=== PATIENT | male | born 1980 | race Caucasian/White ===

== ENCOUNTER 2019-09-04 12:47 | Inpatient (IN) | payer BC, SELFPAY ==
[~2019-09-04] VITALS: Ht 175.3 cm; Wt 84.8 kg
[2019-09-04 13:26] VITALS: BP_SYST 105
[2019-09-04] MEDS ORDERED: VANCOMYCIN HCL 1,000 MG in NS 250 ML IV ONE (14:30)
[2019-09-04] MEDS ORDERED: PIPERACILLIN/TAZO 3.375 GM in NS 50 ML IV ONE (14:30)
[2019-09-04 14:32] LABS: BASOPHILS % (AUTO) 0.4 % (0.0-2.0); HEMOGLOBIN 15.6 g/dL (14.0-18.0); LYMPHOCYTES # (AUTO) 0.7 K/uL (1.0-5.5); LYMPHOCYTES % (AUTO) 11.4 % (20.5-51.5); MEAN CORPUSCULAR HEMOGLOBIN 30 pg (27-31); MEAN CORPUSCULAR HGB CONC 34 % (32-36); MEAN CORPUSCULAR VOLUME 88 fL (79.0-98.0); MONOCYTES # (AUTO) 0.4 K/uL (0.0-1.0); MONOCYTES % (AUTO) 6.7 % (1.7-9.3); NEUTROPHILS # (AUTO) 4.9 K/uL (1.8-7.7); NEUTROPHILS % (AUTO) 81.5 % (40.0-70.0); PLATELET COUNT (AUTO) 231 K/uL (130-430); RED CELL DISTRIBUTION WIDTH 11.9 % (9.0-15.0)
[2019-09-04 14:42] LABS: CALCIUM 8.4 mg/dL (8.4-11.0); CREATININE 1.01 mg/dL (0.55-1.30); POTASSIUM 3.9 mmol/L (3.5-5.1)
[2019-09-04 14:46] LABS: ALBUMIN 3.1 g/dL (3.4-4.8); TOTAL BILIRUBIN 0.5 mg/dL (0.0-1.0)
[2019-09-04 14:55] LABS: PROTHROMBIN TIME 10.2 SECS (9.5-12.5)
[2019-09-04 15:18] LABS: C-REACTIVE PROTEIN QUANT 17.4 mg/dL (0-0.5)
[2019-09-04] MEDS ORDERED: PIPERACILLIN/TAZOBACTAM 3.375 GM/VIAL (ZOSYN) IV ONE (16:10)
[2019-09-04] MEDS ORDERED: VANCOMYCIN HCL 1000 MG/VIAL IV ONE (16:10)
[2019-09-04 19:58] LABS: BILIRUBIN,URINE NEGATIVE (NEGATIVE); BLOOD, URINE NEGATIVE (NEGATIVE); CLARITY/URINE CLEAR (CLEAR); COLOR,URINE YELLOW (YELLOW); GLUCOSE,URINE NEGATIVE (NEGATIVE); KETONES,URINE 1+ (NEGATIVE); LEUKOCYTE ESTERASE ,URINE NEGATIVE (NEGATIVE); NITRITE, URINE NEGATIVE (NEGATIVE); PROTEIN URINE 2+ (NEGATIVE); UROBILINOGEN,URINE 0.2 (0.2-1.0)
[2019-09-04 20:09] LABS: RBC,URINE NONE SEEN /HPF (0-3)
[2019-09-04 20:10] LABS: BACTERIA,URINE None Seen /HPF (None Seen); MUCUS,URINE None Seen /LPF (None Seen); WBC,URINE 0-3 /HPF (0-3)
[2019-09-04] MEDS ORDERED: ALBUTEROL MDI INHALATION 8 GM INH INH PRN (20:45)
[2019-09-04] MEDS ORDERED: ACETAMINOPHEN 500 MG TABLET PO PRN (20:45)
[2019-09-04] MEDS ORDERED: DOCUSATE SODIUM 100 MG/10 ML UDC PO PRN (20:45)
[2019-09-04] MEDS ORDERED: ZOLPIDEM TARTRATE 5 MG TABLET PO PRN (20:45)
[2019-09-04] MEDS ORDERED: ONDANSETRON HCL 4 MG/2 ML VIAL IVP PRN (20:45)
[2019-09-04] MEDS ORDERED: HYDROcodone/ACETAMIN 7.5-325 MG TAB PO PRN (20:45)
[2019-09-04] MEDS: HEPARIN SODIUM,PORCINE 5000 UNITS/ML VIAL SUBCUT SCH (21:00)
[2019-09-04] MEDS: NACL 0.9% 1,000 ML IV SCH (21:01)
[2019-09-04] MEDS ORDERED: DEXAMETHASONE SOD PHOSPHATE 4 MG/ML VIAL IVP SCH (22:00)
[2019-09-04 22:30] LABS: BARBITURATE, URINE NEGATIVE (NEG <=200); BENZODIAZEPINE, URINE NEGATIVE (NEG <=150); CANNABINOID, URINE NEGATIVE (NEG <=50); COCAINE, URINE NEGATIVE (NEG <=150); METHAMPHETAMINES SCREEN,URINE NEGATIVE (NEG <=500); OPIATE, URINE NEGATIVE (NEG <=100); PHENCYCLIDINE SCREEN,URINE NEGATIVE (NEG <=25); UR TRICYCLIC ANTIDEPRESSANTS NEGATIVE (NEG <=300); URINE AMPHETAMINE NEGATIVE (NEG <=500); URINE METHADONE NEGATIVE (NEG <=200); URINE OXYCODONE SCREEN NEGATIVE (NEG <=100); URINE PROPOXYPHENE SCREEN NEGATIVE (NEG <=300)
[2019-09-04 22:37] LABS: FREE T4 (FREE THYROXINE) 0.8 ng/dL (0.6-1.6); PHOSPHORUS 2.6 mg/dL (2.7-4.5); THYROID STIMULATING HORMONE 0.45 uIu/mL (0.34-4.82)
[2019-09-05 06:45] LABS: BASOPHILS % (AUTO) 0.5 % (0.0-2.0); EOSINOPHILS % (AUTO) 0.3 % (0.0-4.0); LYMPHOCYTES # (AUTO) 1.6 K/uL (1.0-5.5); LYMPHOCYTES % (AUTO) 36.3 % (20.5-51.5); MEAN CORPUSCULAR HEMOGLOBIN 30 pg (27-31); MEAN CORPUSCULAR HGB CONC 34 % (32-36); MEAN CORPUSCULAR VOLUME 89 fL (79.0-98.0); MONOCYTES # (AUTO) 0.4 K/uL (0.0-1.0); NEUTROPHILS # (AUTO) 2.3 K/uL (1.8-7.7); NEUTROPHILS % (AUTO) 52.9 % (40.0-70.0); PLATELET COUNT (AUTO) 214 K/uL (130-430); RED BLOOD CELL COUNT(AUTO) 4.63 MIL/uL (4.2-6.2); WHITE BLOOD COUNT (AUTO) 4.3 K/uL (4.8-10.8)
[2019-09-05 07:41] LABS: ALBUMIN 2.4 g/dL (3.4-4.8); CALCIUM 7.8 mg/dL (8.4-11.0); CREATININE 0.87 mg/dL (0.55-1.30); POTASSIUM 4.1 mmol/L (3.5-5.1); TOTAL BILIRUBIN 0.5 mg/dL (0.0-1.0)
[2019-09-05] MEDS ORDERED: ALBUTEROL SULFATE 0.083% 2.5 MG/3 ML VIAL.NEB INH PRN (08:15)
[2019-09-05 08:48] LABS: ERYTHROCYTE SEDIMENTATION RATE 38 MM/HR (0-15)
[2019-09-05] MEDS ORDERED: AZITHROMYCIN 500 MG in NS 250 ML IV SCH (09:00)
[2019-09-05] MEDS ORDERED: cefTRIAXone 1 GM in D5W 50 ML IV SCH (09:00)
[2019-09-05] MEDS: cefTRIAXone 1 GM in D5W 50 ML IV SCH (09:49)
[2019-09-05] MEDS: DECADRON 4 MG TABLET PO SCH (10:48)
[2019-09-05] MEDS: ASCORBIC ACID 500 MG TABLET PO SCH (10:48)
[2019-09-05] MEDS: AZITHROMYCIN 250 MG TABLET PO SCH (10:50)
[2019-09-05] MEDS: PANTOPRAZOLE SODIUM 40 MG TAB PO SCH (10:51)
[2019-09-05] MEDS: HEPARIN SODIUM,PORCINE 5000 UNITS/ML VIAL SUBCUT SCH ×2 (11:20→20:59)
[2019-09-05 11:33] LABS: C-REACTIVE PROTEIN QUANT 16.6 mg/dL (0-0.5)
[2019-09-05] MEDS: NACL 0.9% 1,000 ML IV SCH ×2 (13:06→21:07)
[2019-09-05 14:49] VITALS: BP_SYST 114
[2019-09-06] VITALS: BP_SYST 150
[2019-09-06 01:29] VITALS: BP_SYST 123
[2019-09-06] MEDS: ASCORBIC ACID 500 MG TABLET PO SCH (08:51)
[2019-09-06] MEDS: AZITHROMYCIN 250 MG TABLET PO SCH (08:51)
[2019-09-06] MEDS: DECADRON 4 MG TABLET PO SCH (08:51)
[2019-09-06] MEDS: PANTOPRAZOLE SODIUM 40 MG TAB PO SCH (08:51)
[2019-09-06] MEDS: NACL 0.9% 1,000 ML IV SCH ×2 (08:51→22:29)
[2019-09-06 08:52] VITALS: BP_SYST 127
[2019-09-06] MEDS: ENOXAPARIN SODIUM 80 MG/0.8 ML SYRINGE SUBCUT SCH (09:00)
[2019-09-06] MEDS: cefTRIAXone 1 GM in D5W 50 ML IV SCH (09:55)
[2019-09-06 11:08] LABS: BASOPHILS % (AUTO) 0.5 % (0.0-2.0); HEMATOCRIT 43.7 % (36-54); LYMPHOCYTES # (AUTO) 0.7 K/uL (1.0-5.5); LYMPHOCYTES % (AUTO) 15.6 % (20.5-51.5); MEAN CORPUSCULAR HEMOGLOBIN 30 pg (27-31); MEAN CORPUSCULAR HGB CONC 34 % (32-36); MEAN CORPUSCULAR VOLUME 89 fL (79.0-98.0); MONOCYTES # (AUTO) 0.4 K/uL (0.0-1.0); MONOCYTES % (AUTO) 9.6 % (1.7-9.3); NEUTROPHILS # (AUTO) 3.3 K/uL (1.8-7.7); NEUTROPHILS % (AUTO) 74.3 % (40.0-70.0); PLATELET COUNT (AUTO) 288 K/uL (130-430); RED BLOOD CELL COUNT(AUTO) 4.93 MIL/uL (4.2-6.2); RED CELL DISTRIBUTION WIDTH 12.1 % (9.0-15.0); WHITE BLOOD COUNT (AUTO) 4.4 K/uL (4.8-10.8)
[2019-09-06 11:25] LABS: ALBUMIN 2.6 g/dL (3.4-4.8); CALCIUM 8.5 mg/dL (8.4-11.0); CREATININE 0.78 mg/dL (0.55-1.30); POTASSIUM 3.6 mmol/L (3.5-5.1); TOTAL BILIRUBIN 0.3 mg/dL (0.0-1.0)
[2019-09-06 11:38] LABS: C-REACTIVE PROTEIN QUANT 14.2 mg/dL (0-0.5)
[2019-09-06 11:54] LABS: ERYTHROCYTE SEDIMENTATION RATE 34 MM/HR (0-15)
[2019-09-06 12:39] VITALS: BP_SYST 121
[2019-09-06 16:20] VITALS: BP_SYST 129
[2019-09-06 20:00] VITALS: BP_SYST 135
[2019-09-07 00:01] VITALS: BP_SYST 134
[2019-09-07 07:39] VITALS: BP_SYST 120
[2019-09-07] MEDS ORDERED: APIX2.5T PO (07:41)
[2019-09-07] MEDS ORDERED: VITD2000 PO (07:41)
[2019-09-07] MEDS ORDERED: DEXA6TAB5 PO (07:41)
[2019-09-07] MEDS ORDERED: AZIT250T PO (07:41)
[2019-09-07] MEDS ORDERED: ASCO500C18 PO (07:41)
[2019-09-07] MEDS ORDERED: ZINC220T4 PO (07:41)
[2019-09-07] MEDS: cefTRIAXone 1 GM in D5W 50 ML IV SCH (08:12)
[2019-09-07] MEDS: PANTOPRAZOLE SODIUM 40 MG TAB PO SCH (08:12)
[2019-09-07] MEDS: DECADRON 4 MG TABLET PO SCH (08:12)
[2019-09-07] MEDS: ASCORBIC ACID 500 MG TABLET PO SCH (08:12)
[2019-09-07 08:13] VITALS: BP_SYST 133
[2019-09-07] MEDS: ENOXAPARIN SODIUM 80 MG/0.8 ML SYRINGE SUBCUT SCH (08:13)
[2019-09-07] MEDS: AZITHROMYCIN 250 MG TABLET PO SCH (08:13)
[2019-09-07] MEDS: NACL 0.9% 1,000 ML IV SCH ×2 (08:13→21:05)
[2019-09-07 10:24] LABS: BASOPHILS % (AUTO) 0.2 % (0.0-2.0); HEMATOCRIT 45.3 % (36-54); HEMOGLOBIN 15.5 g/dL (14.0-18.0); LYMPHOCYTES # (AUTO) 1.2 K/uL (1.0-5.5); LYMPHOCYTES % (AUTO) 14.6 % (20.5-51.5); MEAN CORPUSCULAR HEMOGLOBIN 30 pg (27-31); MEAN CORPUSCULAR HGB CONC 34 % (32-36); MEAN CORPUSCULAR VOLUME 88 fL (79.0-98.0); MONOCYTES # (AUTO) 0.7 K/uL (0.0-1.0); MONOCYTES % (AUTO) 8.1 % (1.7-9.3); NEUTROPHILS # (AUTO) 6.5 K/uL (1.8-7.7); NEUTROPHILS % (AUTO) 77.1 % (40.0-70.0); PLATELET COUNT (AUTO) 358 K/uL (130-430); RED BLOOD CELL COUNT(AUTO) 5.13 MIL/uL (4.2-6.2); RED CELL DISTRIBUTION WIDTH 12.1 % (9.0-15.0); WHITE BLOOD COUNT (AUTO) 8.4 K/uL (4.8-10.8)
[2019-09-07 10:39] LABS: ALBUMIN 2.6 g/dL (3.4-4.8); C-REACTIVE PROTEIN QUANT 5.5 mg/dL (0-0.5); CALCIUM 8.3 mg/dL (8.4-11.0); CREATININE 0.79 mg/dL (0.55-1.30); POTASSIUM 3.5 mmol/L (3.5-5.1); TOTAL BILIRUBIN 0.6 mg/dL (0.0-1.0)
[2019-09-07 11:07] LABS: ERYTHROCYTE SEDIMENTATION RATE 19 MM/HR (0-15)
[2019-09-07 12:10] VITALS: BP_SYST 110
[2019-09-07 16:07] VITALS: BP_SYST 120
[2019-09-07 20:00] VITALS: BP_SYST 125
[2019-09-08 08:00] VITALS: BP_SYST 130
[2019-09-08 08:22] VITALS: BP_SYST 130
[2019-09-08] MEDS: ASCORBIC ACID 500 MG TABLET PO SCH (08:50)
[2019-09-08] MEDS: cefTRIAXone 1 GM in D5W 50 ML IV SCH (08:50)
[2019-09-08] MEDS: AZITHROMYCIN 250 MG TABLET PO SCH (08:50)
[2019-09-08] MEDS: DECADRON 4 MG TABLET PO SCH (08:50)
[2019-09-08] MEDS: PANTOPRAZOLE SODIUM 40 MG TAB PO SCH (08:50)
[2019-09-08] MEDS: ENOXAPARIN SODIUM 80 MG/0.8 ML SYRINGE SUBCUT SCH (09:54)
[2019-09-08 12:00] VITALS: BP_SYST 128
[2019-09-08] MEDS: NACL 0.9% 1,000 ML IV SCH (12:02)
[2019-09-08 16:00] VITALS: BP_SYST 128
[2019-09-08 16:56] VITALS: BP_SYST 127
[2019-09-08 20:23] VITALS: BP_SYST 123
== END 2019-09-08 21:00 | disposition home or self-care (01) | DRG 177 ==
LOC: SED 12:47 → STU 20:04
PROVIDERS: ADMIT Family Medicine; ATTEND Family Medicine
DX: U07.1 COVID-19 (principal); J12.89 Other viral pneumonia; J96.01 Acute respiratory failure with hypoxia; E87.1 Hypo-osmolality and hyponatremia; E83.39 Other disorders of phosphorus metabolism; E78.5 Hyperlipidemia, unspecified; E87.8 Other disorders of electrolyte and fluid balance, not elsewhere classified
CPT/HCPCS: 36415; 36600; 71045; 80053; 80061; 80307; 81000-TC; 82150-TC; 82550-TC; 82728; 82803-TC; 83036; 83605; 83615-TC; 83690-TC; 83735-TC; 83880; 84100-TC; 84439; 84443-TC; 84484; 85025; 85384-TC; 85610-TC; 85651-TC; 85730-TC; 86140; 87040-TC; 87086; 93005; 96365; 96368; 99285; G0378; J0456; J0696; J1644; J1650; J2543; J3370; J7030; J7050; J7060; J8540; Q0144; U0003-CS